=== PATIENT | male | born 1970 | race Caucasian/White ===

== ENCOUNTER → 2023-01-13 10:18 | Outpatient (CLI) | payer BC, SELFPAY ==
--- NOTE | 2023-01-13 10:20 | DI.RAD.S_ITS ---
PROCEDURE: XR FINGER RT MIN 2V INDICATIONS: Foreign body finger TECHNIQUE: AP hand, 2 views of the 2nd finger(s) acquired. COMPARISON: None. FINDINGS: Bones: No acute fractures or dislocations. No suspicious bony lesions. Soft tissues: Soft tissue swelling over dorsal aspect of 2nd PIP joint is seen with internal small radiodensity. IMPRESSION: Soft tissue swelling over dorsal aspect of 2nd PIP joint with possible foreign body. No acute 2nd digit fracture or dislocation. Dictated by: Gm Padilla M.D. on 01/13/2023 at 11:58 Approved by: Gm Padilla M.D. on 01/13/2023 at 11:59
== END ==
PROVIDERS: Referring Provider Nurse Practitioner Family; Visit Provider Nurse Practitioner Family
DX: S60.459A Superficial foreign body of unspecified finger, initial encounter (principal); M79.89 Other specified soft tissue disorders
CPT/HCPCS: 73140